=== PATIENT | male | born 1935 | race Caucasian/White ===

== ENCOUNTER 2019-01-16 09:46 | Emergency (ER) | payer OTHER ==
--- NOTE | 2019-01-16 09:54 | EDPHY ---
H & P Stated Complaint: Mech fall s LOC yest, N/V today c unsteady gait, no anticoags Time Seen by Provider: 01/16/19 09:53 - Personal History Current Tetanus/Diphtheria Vaccine: Yes - Medical/Surgical History Hx Asthma: No Hx Chronic Respiratory Disease: No Hx Diabetes: No Hx Cardiac Disease: No Hx Renal Disease: No Hx Cirrhosis: No Hx Alcoholism: No Hx HIV/AIDS: No Hx Splenectomy or Spleen Trauma: No Other PMH: Skin CA, L hip replc 2009, 2010 urostomy, clots - Social History Smoking Status: Never smoked Constitutional: Initial Vital Signs Temperature (C) 36.9 C 01/16/19 09:48 Heart Rate 120 H 01/16/19 09:48 Respiratory Rate 18 01/16/19 09:48 Blood Pressure 198/110 H 01/16/19 09:48 O2 Sat (%) 96 01/16/19 09:48 O2 Delivery Mode Room Air Allergies/Adverse Reactions: No Known Allergies Allergy (Unverified 01/16/19 09:48) Medical Decision Making ED Course/Re-evaluation: CHIEF COMPLAINT: Head injury HISTORY OF PRESENT ILLNESS: The patient is an 83 y/o male with a history of skin cancer complaining of tripping and falling on a gravel path yesterday at 14:30. He did hit his head on impact and had a short period of loss of consciousness. He also landed on his left hand and hit his knees. He was able to walk without difficulty immediately after the fall. Immediately after the fall he complained of a headache but had not difficulty with balance. Today he has been vomiting and has an unsteady gait. He denies using anticoagulants. He did not take his baby Aspirin last night. No fever, body aches, lightheadedness, chest pain, heart palpitations, shortness of breath, cough, abdominal pain, urinary or bowel complaints, numbness, paresthesias. REVIEW OF SYSTEMS: A 10 point review of systems was performed and is negative with the exception of the elements mentioned in the history of present illness. PHYSICAL EXAM: HR, BP, O2 Sat, RR. Temp noted General Appearance: Alert, well hydrated, appropriate, and non-toxic appearing. Head: Atraumatic without scalp tenderness or obvious injury Eyes: Ecchymosis around right orbit. Pupils equal, round, reactive to light and accommodation, EOMI, no injection. Ears: Clear bilaterally, no perforation, normal landmarks Nose: Atraumatic, no rhinorrhea, clear. Throat: There is no erythema or exudates, no lesions, normal tonsils, mucus membranes moist. Neck: Supple, 2+ carotid upstroke, nontender, no lymphadenopathy. Respiratory: No retractions, no distress, no wheezes, and no accessory muscle use. Lungs are clear to auscultation bilaterally. Cardiovascular: Regular rate and rhythm, no murmurs, rubs, or gallops. Bilateral carotid, radial, dorsalis pedis, and posterior tibial pulses intact. Good capillary refill all extremities. Gastrointestinal: Abdomen is soft, nontender, non-distended, no masses, no rebound, no guarding, no peritoneal signs. Musculoskeletal: Normal active ROM of all extremities, atraumatic. Neurological: Alert, appropriate, and interactive. The patient has normal DTRs and non-focal cranial nerves, motor, sensory, and cerebellar exam. Skin: Abrasions on knees. No rashes, good turgor, no nodules on palpation. Past medical history: Skin cancer, clots Past surgical history: Left hip replacement, urostomy Family history: Denies Social history: at bedside, retired, lives in [place] DIAGNOSTICS/PROCEDURES/CRITICAL CARE TIME: Head CT: Numerous facial bone fractures. No intracranial hemorrhage. DIFFERENTIAL DIAGNOSIS: The differential diagnosis for the patient's head injury included but was not limited to concussion, skull fracture, intra-parenchymal contusion, subarachnoid , subdural and epidural hematoma. MEDICAL DECISION MAKING: The patient is an 83 y/o male with a history of skin cancer presenting with a head injury after tripping and falling on a gravel path yesterday at 14:30. He did hit his head on impact and had a short period of loss of consciousness. He was able to walk without difficulty immediately after the fall but did have a headache. Today he has been vomiting and has an unsteady gait. On exam he has ecchymosis around his right orbit and abrasions on his knees. Labs and head CT ordered; 4mg IV Zofran administered. 1039: I spoke with the radiologist who reports that the patient has numerous facial fractures that can be treated as an outpatient. There is not intracranial hemorrhage. 1040: Reassessed patient and discussed imaging findings. I have advised him to follow up with an [facility] surgeon and follow up with Dr. Hutson for the concussion. Post-concussive precautions provided. Return precautions provided; patient is comfortable with this plan. - Data Points Laboratory Results: Laboratory Results 01/16/19 10:08 01/16/19 10:08 01/16/19 01/16/19 01/16/19 10:08 10:08 10:08 WBC 12.57 10^3/uL H 10^3/uL (3.80-9.50) RBC 4.55 10^6/uL 10^6/uL (4.40-6.38) Hgb 14.5 g/dL g/dL (13.7-17.5) Hct 42.4 % % (40.0-51.0) MCV 93.2 fL fL (81.5-99.8) MCH 31.9 pg pg (27.9-34.1) MCHC 34.2 g/dL g/dL (32.4-36.7) RDW 13.3 % % (11.5-15.2) Plt Count 230 10^3/uL 10^3/uL (150-400) MPV 8.7 fL fL (8.7-11.7) Neut % (Auto) 82.0 % H % (39.3-74.2) Lymph % (Auto) 10.4 % L % (15.0-45.0) [place] % (Auto) 6.7 % % (4.5-13.0) Eos % (Auto) 0.2 % L % (0.6-7.6) Baso % (Auto) 0.4 % % (0.3-1.7) Nucleat RBC Rel Count 0.0 % % (0.0-0.2) Absolute Neuts (auto) 10.30 10^3/uL H 10^3/uL (1.70-6.50) Absolute Lymphs (auto) 1.31 10^3/uL 10^3/uL (1.00-3.00) Absolute Monos (auto) 0.84 10^3/uL H 10^3/uL (0.30-0.80) Absolute Eos (auto) 0.03 10^3/uL 10^3/uL (0.03-0.40) Absolute Basos (auto) 0.05 10^3/uL 10^3/uL (0.02-0.10) Absolute Nucleated RBC 0.00 10^3/uL 10^3/uL (0-0.01) Immature Gran % 0.3 % % (0.0-1.1) Immature Gran # 0.04 10^3/uL 10^3/uL (0.00-0.10) PT Cancelled INR Cancelled APTT Cancelled Turbidity Cancelled Sodium Cancelled Potassium Cancelled Chloride Cancelled Carbon Dioxide Cancelled Anion Gap Cancelled BUN Cancelled Creatinine Cancelled Estimated GFR Cancelled Glucose Cancelled Calcium Cancelled Specimen Hemolysis Cancelled Medications Given: Discontinued Medications Ondansetron HCl (Zofran) 4 mg IVP EDNOW ONE Stop: 01/16/19 09:57 Last Admin: 01/16/19 10:24 Dose: Not Given Departure - Departure Disposition: Home, Routine, Self-Care Clinical Impression: Abrasions of multiple sites Head injury Qualifiers: Encounter type: initial encounter Qualified Code(s): S09.90XA - Unspecified injury of head, initial encounter Fracture, facial bones Qualifiers: Encounter type: initial encounter Facial bone/location: unspecified facial bone Fracture type: closed Qualified Code(s): S02.92XA - Unspecified fracture of facial bones, initial encounter for closed fracture Condition: Good Instructions: Facial Fracture (ED), Concussion (ED), Head Injury (ED), Abrasion (ED) Additional Instructions: Follow up with Dr. Barry for the facial fractures. Please call her office on Thursday. 1. Apply ice to sore areas and take 600mg ibuprofen every 6-8 hours or 650mg Tylenol every 4-6 hours for pain for the next few days. 2. Cognitive rest while symptoms are present. Avoid screen time including TV, phones, and computers until symptoms improve. 3. Physical rest while symptoms are present. Avoid any activities that could put you at further risk for a head injury until your symptoms resolve including contact sports, bicycling, etc. This may be 2 weeks or longer. 4. Follow up with Dr. Hutson, head injury specialist, for unimproved symptoms over the next 10-14 days. It's not uncommon to experience fatigue, mood swings, and difficulty concentrating with concussions. 5. Return to the ED for severe headache, weakness or numbness on one side of your body, vision changes, or other worsening of condition. Referrals: Ariella Hutson MD [Medical Doctor] - As per Instructions Ramirez Barry MD [Medical Doctor] - As per Instructions Report Scribed for: Anthony Vincent Report Scribed by: Jessica Bay Date of Report: 01/16/19 Time of Report: 09:56
[2019-01-16] MEDS ORDERED: ONDANSETRON 4 MG/2 ML VIAL IVP ONE ×2 (09:56→10:43)
[2019-01-16 10:29] VITALS: BP 166/97
[2019-01-16 10:34] LABS: PLATELET COUNT 230 10^3/uL (150-400)
== END 2019-01-16 10:52 | disposition home or self-care (01) ==
DX: S02.31XA Fracture of orbital floor, right side, initial encounter for closed fracture (principal); S02.40EA Zygomatic fracture, right side, initial encounter for closed fracture; S02.40CA Maxillary fracture, right side, initial encounter for closed fracture; W01.0XXA Fall on same level from slipping, tripping and stumbling without subsequent striking against object, initial encounter; Z85.828 Personal history of other malignant neoplasm of skin; Z86.73 Personal history of transient ischemic attack (TIA), and cerebral infarction without residual deficits; Z96.642 Presence of left artificial hip joint
CPT/HCPCS: 70450; 96374; 99285; J2405